=== PATIENT | male | born 1955 | race Caucasian/White ===

== ENCOUNTER → 2019-12-31 | Outpatient (CLI) | payer MEDICARE ==
[~2019-12-31] VITALS: Ht 180.3 cm; Wt 95.3 kg
[2019-12-31] VITALS (8 sets, daily range): BP systolic 111–142; BP diastolic 38–50
[~2019-12-31] MED LIST: ASA81BEC PO; AVAPRO 150 MG150 M1 PO; FISH OIL 1,001000 M3 PO; RED YEAST RICE600 MG PO
[2019-12-31 09:34] LABS: HEMATOCRIT 46.3 % (42.0-52.0); HEMOGLOBIN 16.5 gm/dL (14.0-18.0); MCH 30.9 pg (26.0-34.0); MCHC 35.6 g/dL (28.0-37.0); MCV 86.8 fL (80.0-100.0); MPV 7.7 fl. (7.2-11.1); RBC 5.33 mil/uL (4.50-6.00); WBC 6.7 thou/uL (4.0-11.0)
[2019-12-31 09:44] LABS: ANION GAP 6 mmol/L (7-16); BUN 16 mg/dL (7-18); CALCIUM 9.6 mg/dL (8.5-10.1); CHLORIDE 103 mmol/L (98-107); CO2 30 mmol/L (21-32); CREATININE 1.1 mg/dL (0.6-1.3); GLUCOSE 48 mg/dL (70-99); POTASSIUM 3.9 mmol/L (3.5-5.1); SODIUM 139 mmol/L (136-145)
[2019-12-31 09:46] LABS: PROTIME 10.5 Seconds (9.20-11.50)
[2019-12-31 09:48] LABS: ALBUMIN 4.4 g/dL (3.4-5.0); ALKALINE PHOSPHATASE 71 U/L (46-116); CHOLESTEROL 234 mg/dL (<200); HDL CHOLESTEROL 55 mg/dL (>40); LDL CHOLESTEROL 150 mg/dL (<100); SGOT 21 U/L (15-37); SGPT 31 U/L (30-65); TC:HDL 4.3 Ratio (Not establshd); TOTAL BILIRUBIN 0.6 mg/dL (<0.1-1.0); TOTAL PROTEIN 8.3 g/dL (6.4-8.2); TRIGLYCERIDE 147 mg/dL (<150); VLDL 29 mg/dL (<40)
[2019-12-31 09:59] LABS: SERUM ASSESSMENT Clear
--- NOTE | 2019-12-31 17:55 | EKG ---
[place] [address] ELECTROCARDIOGRAM REPORT Name: SOPHIA AMARAL Room: [facility]#: [id number] Admission: 12/31/19 Attend Phys: Lisa Ellsworth Discharge: Date of : 51 Date of Service: 12/31/19 0949 Report #: [id number] THIS REPORT FOR: //name// [facility] Test Date: 2019-12-31 Test Time: 09:49:46 Pat Name: SOPHIA AMARAL Department: Room: Gender: Professional [employer]: : 1955 Requested By: Rubio Hughes Order Number: [id number] Alesia MD: Timbo Molina Measurements Intervals [place] Rate: 58 P: -2 NM: 209 QRS: -15 QRSD: 110 T: 173 QT: 403 QTc: 396 Interpretive Statements Sinus rhythm Ventricular premature complex Probable LVH with secondary repol abnrm No previous ECG available for comparison Electronically Signed On 12-31-2019 17:55:34 CDT by Timbo Molina [email or web address] <ELECTRONICALLY SIGNED> By: Timbo Molina MD, FACC 12/31/19 1755 0949 0949 Timbo Molina MD, [facility] /EPI
--- NOTE | 2020-01-03 10:28 | CARD ---
[address] [address] CARDIAC CATH REPORT Name: SOPHIA AMARAL Room: [facility]#: [id number] Admission: 12/31/19 Attend Phys: Rubio Hughes MD, Discharge: Date of : 51 Report #: [id number] THIS REPORT FOR: //name// cc: Geronimo Santos MD, David A. MD ~ ADDENDUM APPROVED REPORT Study performed: 12/31/2019 09:29:24 Patient Details The patient is a 64 year-old male Event Personnel Rubio Hughes Costume Rental Clerk, Love Thomas RN, Logan Trevino Childers, James [employer]RTRO[employer] DEPUTY Monitor Procedures Performed Left heart catheterization left ventriculography ascending aortography and selective coronary arteriography Indication Valvular heart disease Risk Factors Hypertension Procedure Narrative The patient was brought electively to the Cardiac Catheterization Laboratory and was prepped and draped in a sterile manner. The right femoral was infiltrated with 2% Lidocaine subcutaneous anesthesia. A [place] 6 FR sheath was inserted into the . Coronary angiography was performed using coronary diagnostic catheters. The right coronary system was accessed and visualized with a 3DRC 6fr catheter. The left coronary system was accessed and visualized with a 6F XB LAD 4.0 catheter. The left ventricle was accessed and visualized with a Diagnostic - Str PIG catheter. Left ventricular/Aortic Valve gradient assessed via catheter pullback. Left ventriculogram was performed in [place] projection. An aortogram of the ascending aorta was performed. Pre-demployment femoral angiogram was performed . Closure device was deployed with a Fr Mynx 6Fr/7Fr. Hemostasis was obtained with manual pressure following sheath removal without any complications. The patient tolerated the procedure well and there were no complications associated with the procedure. There was no hematoma. Intra[place] [address] CARDIAC CATH REPORT Name: MUNIR,SOPHIA Lisa Room: [facility]#: [id number] Admission: 12/31/19 Attend Phys: Rubio Hughes MD, Discharge: Date of : 51 Report #: [id number] Sedation start time: 1033 Case end Time: 1112 Fentanyl 25 mcg Versed 2 mg Fluoro Time: 11.6 minutes Dose: DAP 398253 cGycm2 1743 mGy Contrast Type and Amount: Visipaque 270 ml Coronary Angiography The patient's coronary anatomy is right dominant. Diagnostic Cath Left Main 0% narrowing LAD 30% proximal narrowing Circumflex 40% mid vessel narrowing with 30% proximal first marginal narrowing Right Coronary Large dominant vessel with proximal tortuosity and 30% proximal narrowing Left Ventriculography The left ventricle is moderately dilated in size with Mildly decreased contractility. The left ventricular ejection fraction is estimated to be 50%. Left ventricular wall motion abnormalities are not present. Ascending aortography demonstrated a moderately dilated aortic root with calcification of the aortic cusps and severe, 4+/ 4+ aortic insufficiency into a dilated left ventricle Hemodynamics The aortic pressure is 134/46 mmHg with a mean of 77 mmHg. The left ventricular pressure is 140/-4 mmHg with a mean of mmHg. The left ventricular end diastolic pressure is 14 mmHg. There was no gradient across the aortic valve upon pullback. Conclusion 1. Severe aortic insufficiency 2 Moderate dilatation of the aortic root with calcification of the aortic cusps 3. Mild coronary artery disease characterized by the following: A 30% proximal LAD narrowing B 40% mid circumflex narrowing with 30% first marginal narrowing C tortuosity with 30% narrowing in the [place] [address] CARDIAC CATH REPORT Name: SOPHIA AMARAL Room: [facility]#: [id number] Admission: 12/31/19 Attend Phys: Rubio Hughes MD, Discharge: Date of : 51 Report #: [id number] dominant right coronary artery 3. Normal left-sided hemodynamic study 4. Moderate left intracavitary dilatation with mild reduction in global LV function, estimated ejection fraction being 50%. Recommendations Valve Surgery Diagnostic Cath Approved by: Rubio Hughes MD Date/Time: 12/31/2019 17:26:06 <ELECTRONICALLY SIGNED> By: Rubio Hughes MD, [facility] 01/03/20 1028 1028 1028Rubio Hughes MD, FACC /INF
== END | disposition home or self-care (01) ==
LOC: M.CL 06:39
PROVIDERS: ATTEND Internal Medicine
DX: I11.9 Hypertensive heart disease without heart failure (principal); R94.30 Abnormal result of cardiovascular function study, unspecified; E78.00 Pure hypercholesterolemia, unspecified; I35.1 Nonrheumatic aortic (valve) insufficiency; Z79.899 Other long term (current) drug therapy; Z79.82 Long term (current) use of aspirin; Z72.89 Other problems related to lifestyle; Z98.890 Other specified postprocedural states; Z20.828 Contact with and (suspected) exposure to other viral communicable diseases